=== PATIENT | male | born 1975 | race African-American/Black ===

== ENCOUNTER 2016-08-16 04:07 | Emergency (ER) | payer SELFPAY ==
[~2016-08-16] VITALS: Ht 193 cm; Wt 145.1 kg
[2016-08-16 04:22] VITALS: BP 156/109
[2016-08-16] MEDS ORDERED: BUPIVACAINE 0.5% 50 ML VIAL. ONE (04:30)
[2016-08-16] MEDS ORDERED: HYDR-971 PO (04:56)
--- NOTE | 2016-08-16 04:56 | PHYS DOC ---
Past Medical History Past Medical History: No Pertinent History Past Surgical History: No Surgical History Alcohol Use: None Drug Use: Marijuana Adult General Chief Complaint Chief Complaint: LACERATION/AVULSION HPI HPI 41-year-old male presents with a large laceration on the volar aspect of his right forearm. He states he injured his arm tonight after he broke a glass table. He has no difficulty with feeling in his fingers. He states he's not having any trouble making a fist or moving his fingers. [] Review of Systems Review of Systems Constitutional: Denies fever or chills [] Eyes: Denies change in visual acuity, redness, or eye pain [] HENT: Denies nasal congestion or sore throat [] Respiratory: Denies cough or shortness of breath [] Cardiovascular: No additional information not addressed in HPI [] GI: Denies abdominal pain, nausea, vomiting, bloody stools or diarrhea [] : Denies dysuria or hematuria [] Musculoskeletal: Denies back pain or joint pain [] Integument: Per history of present illness [] Neurologic: Denies headache, focal weakness or sensory changes [] Endocrine: Denies polyuria or polydipsia [] Current Medications Current Medications Current Medications Medications (Trade) Dose Ordered Sig/Malinda Start Time Stop Time Status Last Admin Dose Admin Bupivacaine HCl (Marcaine 0.5%) 50 ml STK-MED ONCE 08/16/16 04:30 08/16/16 04:31 DC Diphtheria/ Tetanus/Acell Pertussis (Boostrix) 0.5 ml ONCE ONCE 08/16/16 05:30 08/16/16 05:31 Allergies Allergies Allergies Coded Allergies Type Severity Reaction Last Updated Verified No Known Drug Allergies 08/16/16 No Physical Exam Physical Exam Constitutional: Well developed, well nourished, no acute distress, non-toxic appearance. [] HENT: Normocephalic, atraumatic, bilateral external ears normal, oropharynx moist, no oral exudates, nose normal. [] Eyes: PERRLA, EOMI, conjunctiva normal, no discharge. [] Neck: Normal range of motion, no tenderness, supple, no stridor. [] Cardiovascular:Heart rate regular rhythm, no murmur [] Lungs & Thorax: Bilateral breath sounds clear to auscultation [] Abdomen: Bowel sounds normal, soft, no tenderness, no masses, no pulsatile masses. [] Skin: 10 cm laceration into the subcutaneous tissue the volar aspect of the distal right forearm [] Back: No tenderness, no CVA tenderness. [] Extremities: No tenderness, no cyanosis, no clubbing, ROM intact, no edema. [] Neurologic: Alert and oriented X 3, normal motor function, normal sensory function, no focal deficits noted. [] Psychologic: Affect normal, judgement normal, mood normal. [] Current Patient Data Vital Signs Vital Signs Date Time Temp Pulse Resp B/P Pulse Ox O2 Delivery O2 Flow Rate FiO2 08/16/16 04:22 100.0 81 16 100 Room Air 100.0 08/16/16 04:19 156/109 EKG EKG [] Radiology/Procedures Radiology/Procedures [] Course & Med Decision Making Course & Med Decision Making Pertinent Labs and Imaging studies reviewed. (See chart for details) [Procedure: Laceration repair The wound was inspected for foreign bodies noted which were found anesthetized with 10 mL of 0.5% Sensorcaine and then closed using 12 skin yasmine without difficulty dressing was applied] Dragon Disclaimer Dragon Disclaimer This electronic medical record was generated, in whole or in part, using a voice recognition dictation system. Departure Departure Impression: Primary Impression: Forearm laceration Disposition: HOME, SELF-CARE Condition: IMPROVED Referrals: NO PCP (PCP) Patient Instructions: Laceration Care, Adult, Stitches, Yasmine or Skin Adhesive Strips, [id number] Additional Instructions: Thank you for allowing us to participate in your care today. Followup with your primary care physician in 3 days if your symptoms do not improve. Return to the emergency department you have any new or concerning findings. This should be evaluated by the primary care physician and any necessary consulting services for continued management within a few days after discharge. Return to emergency room if you have any new or concerning symptoms including but not limited to fever, chills, nausea, vomiting, intractable pain, any new rashes, chest pain, shortness of air, uncontrolled bleeding, difficulty breathing, and/or vision loss. You may have been prescribed medication that can change in your level of thinking and ability to operate machinery. These medications include hydrocodone and Ativan. Also, Benadryl has been known to do this as well. Be sure to check with your pharmacist and ask if the medications you've prescribed can affect your level of consciousness. I recommend not operating heavy machinery or driving while on medication such as these. Scripts Hydrocodone/Apap 5-325 ([place] 5-325 Tablet)1 Each Tablet1 Tab PO PRN Q6HRS PRN PAIN #10 TAB Prov:VINCENT SUAREZ DO 08/16/16 Problem Qualifiers Primary Impression: Forearm laceration Encounter type: initial encounter Laterality: right Qualified Code: S51.811A - Laceration without foreign body of right forearm, initial encounter VINCENT SUAREZ DO Aug 16, 2016 04:56
[2016-08-16] MEDS ORDERED: BUPIVACAINE 0.5% 50 ML VIAL. INJ ONE (05:00)
[2016-08-16] MEDS ORDERED: DIPHTH,PERTUSS(ACELL),TET TOX 0.5 ML DISP.SYRIN. VAX IM ONE (05:30)
== END 2016-08-16 05:16 | disposition home or self-care (01) ==
LOC: ER 04:07
DX: S51.821A Laceration with foreign body of right forearm, initial encounter (principal); F12.10 Cannabis abuse, uncomplicated; W25.XXXA Contact with sharp glass, initial encounter; Y93.89 Activity, other specified; Y99.8 Other external cause status; Y92.89 Other specified places as the place of occurrence of the external cause
CPT/HCPCS: 12001; 90471; 90715; 99283; J3490

== ENCOUNTER 2016-08-28 23:33 | Emergency (ER) | payer SELFPAY ==
[~2016-08-28] VITALS: Ht 193 cm; Wt 145.1 kg
[~2016-08-28 23:33] MED LIST: HYDR-971 PO
[2016-08-28 23:42] VITALS: BP 136/73
--- NOTE | 2016-08-29 00:52 | PHYS DOC ---
Past Medical History Past Medical History: No Pertinent History Past Surgical History: No Surgical History Alcohol Use: None Drug Use: Marijuana Adult General Chief Complaint Chief Complaint: WOUND CHECK HPI HPI Patient is a 41 year old male who presents for wound check. Patient was seen at [facility] nearly two weeks ago for L forearm laceration from a broken piece of glass. The wound was repaired with yasmine at that time. Patient presents tonight with c/o "pulling" sensation at that site and he thought it was about time for the yasmine to come out (he was told he would need them out in about 10 days). No drainage from site. No other acute complaints. Review of Systems Review of Systems Constitutional: Denies fever or chills Musculoskeletal: "Pulling" sensation at site of yasmine in L forearm Allergies Allergies Allergies Coded Allergies Type Severity Reaction Last Updated Verified No Known Drug Allergies 08/16/16 No Physical Exam Physical Exam Constitutional: Well developed, well nourished, no acute distress, non-toxic appearance HENT: Normocephalic, atraumatic Eyes: EOMI, conjunctiva normal, no discharge Neck: No stridor Pulmonary: No respiratory distress Skin: Warm, dry Musculoskeletal: Laceration to L forearm healing well; yasmine in place; no surrounding erythema, warmth to touch, or drainage from site Current Patient Data Vital Signs Vital Signs Date Time Temp Pulse Resp B/P Pulse Ox O2 Delivery O2 Flow Rate FiO2 08/28/16 23:42 99.5 73 18 98 Room Air 99.5 EKG EKG [] Radiology/Procedures Radiology/Procedures [] Course & Med Decision Making Course & Med Decision Making Pertinent Labs and Imaging studies reviewed. (See chart for details) Patient is 41 year old male who presents for check of forearm laceration. Laceration healing well, no evidence of infection. Yasmine removed without complication, steri-strips placed as yasmine taken out. Will discharge home with return precautions. Dragon Disclaimer Dragon Disclaimer This electronic medical record was generated, in whole or in part, using a voice recognition dictation system. Departure Departure Impression: Primary Impression: Encounter for staple removal Disposition: HOME, SELF-CARE Condition: STABLE Referrals: NO PCP (PCP) Patient Instructions: Staple Removal, Care After Additional Instructions: Thank you for allowing us to provide care today in the Emergency Department. Watch for signs of infection, such as pus oozing from the wound or red streaks going up your arm. Seek immediate medical care if you see this. Return promptly to the Emergency Department if you develop any new or concerning symptoms. SOMMER PIERRE MD Aug 29, 2016 00:52
== END 2016-08-29 01:10 | disposition home or self-care (01) ==
LOC: ER 23:33
DX: S51.812D Laceration without foreign body of left forearm, subsequent encounter (principal); F12.10 Cannabis abuse, uncomplicated; W25.XXXD Contact with sharp glass, subsequent encounter; Y93.89 Activity, other specified; Y92.89 Other specified places as the place of occurrence of the external cause; Y99.8 Other external cause status
CPT/HCPCS: 99282